=== PATIENT | female | born 1990 | race Two or more races ===

== ENCOUNTER 2019-05-03 21:48 | Emergency (ER) | payer SELFPAY ==
[~2019-05-03] VITALS: Ht 152.4 cm; Wt 54.4 kg
[2019-05-03 21:56] VITALS: BP 127/91
--- NOTE | 2019-05-03 22:54 | NUR ---
Patient discharged to home in stable condition. rx and Written and verbal after care instructions given. Patient verbalizes understanding of instruction.
== END 2019-05-03 22:56 | disposition home or self-care (01) ==
LOC: ER 21:48
DX: J06.9 Acute upper respiratory infection, unspecified (principal); Z60.2 Problems related to living alone